=== PATIENT | female | born 1965 | race Caucasian/White ===

== ENCOUNTER → 2016-07-25 | Outpatient (CLI) | payer BC ==
[~2016-07-25] MED LIST: IBUPROFEN800 MG PO; KEFLEX 500MG.500 MG PO; PERCOCET 5/3251 EACH PO
[2016-07-25 10:32] LABS: HEMOGLOBIN 14.1 g/dL (12.2-16.2); LYMPH # 2.7 K/mm3 (0.7-4.5)
[2016-07-25 11:13] LABS: BUN 14 mg/dL (7-18); GFR (ESTIMATED) 106 ML/MIN (59-)
== END ==
LOC: LAB 10:00
PROVIDERS: Surgery
DX: D17.9 Benign lipomatous neoplasm, unspecified (principal); Z01.810 Encounter for preprocedural cardiovascular examination; Z01.811 Encounter for preprocedural respiratory examination; Z01.812 Encounter for preprocedural laboratory examination

== ENCOUNTER → 2016-11-19 | Outpatient (CLI) | payer BC ==
[2016-11-19 17:41] LABS: FREE THYROXIN INDEX 6.8 ug/dl (5.93-13.13)
== END ==
LOC: LAB 16:02
PROVIDERS: Nurse Practitioner Obstetrics & Gynecology
DX: R53.82 Chronic fatigue, unspecified (principal); R63.5 Abnormal weight gain